=== PATIENT | male | born 1985 | race Caucasian/White ===

== ENCOUNTER 2017-12-17 16:10 | Emergency (ER) | payer OTHER, BC ==
[2017-12-17] MEDS: KETOROLAC 60 MG/2 ML VIAL (J1885) IM (18:01)
[2017-12-17] MEDS: NORCO 5/325MG TABLET (BULK FOR ED) PO (18:49)
== END 2017-12-17 18:53 | disposition home or self-care (01) ==
LOC: M ED 16:10
DX: S23.3XXA Sprain of ligaments of thoracic spine, initial encounter (principal); Y93.A2 Activity, calisthenics
CPT/HCPCS: J1885